=== PATIENT | male | born 1940 | race Caucasian/White ===

== ENCOUNTER 2018-01-27 11:04 | Observation (INO) | payer OTHER ==
[~2018-01-27] VITALS: Ht 177.8 cm; Wt 116.1 kg
[~2018-01-27 11:04] MED LIST: ASPIRIN81 M4 PO; COLCRYS0.6 M1 PO; DAILY MULTIPLE1 EACH PO; DILTIAZEM 24HR240 M1 PO; FINASTERIDE5 M1 PO; FISH OIL 1,0001 EACH PO; FLAXSEED OIL1000 M2 PO; FLOMAX0.4 M1 PO; GABAPENTIN300 M2 PO; GLIPIZIDE10 M2 PO; JANUMET 1000 MG1 TAB PO; JANUMET 50-1,01 EACH PO; LABETALOL HCL300 M1 PO; LEVOTHYROXINE112 MCG PO; LISINOPRIL40 M1 PO; LORTAB 5/3251 TAB PO; OXYBUTYNIN CHLOR5 M2 PO; PRAVASTATIN SOD20 M2 PO; VICODIN5-300 PO; XARELTO20 MG PO
[2018-01-27 11:37] LABS: ABSOLUTE BASOPHIL COUNT 0.1 /CUMM (0.0-0.2); ABSOLUTE EOSINOPHIL COUNT 0.3 /CUMM (0.0-0.7); ABSOLUTE GRANULOCYTE CT 4.1 /CUMM (1.4-6.5); ABSOLUTE LYMPH COUNT 1.4 /CUMM (1.2-3.4); ABSOLUTE MONOCYTE COUNT 0.6 /CUMM (0.10-0.60); BASOPHIL % 0.9 % (0.0-2.0); EOSINOPHIL % 4.8 % (0-5); GRANULOCYTE % 63.2 % (42.2-75.2); HEMATOCRIT 40.7 % (42-52); MEAN CORPUSCULAR HGB 31.2 PG (27.0-31.0); MEAN CORPUSCULAR HGB CONC 34.7 G/DL (33.0-37.0); MEAN CORPUSCULAR VOLUME 89.8 FL (80.0-94.0); MEAN PLATELET VOLUME 8.3 FL (7.4-10.4); PLATELET COUNT 215 /CUMM (130-400); RBC DISTRIBUTION WIDTH 13.5 % (11.5-14.5); RED BLOOD CELL CT 4.53 /CUMM (4.70-6.10); WHITE BLOOD CELL COUNT 6.5 /CUMM (4.8-10.8)
--- NOTE | 2018-01-27 11:56 | RADIOLOGY REPORT ---
EXAMINATION: XR CHEST CLINICAL INFORMATION: Chest pain. Rule out cardiopulmonary pathology. COMPARISON: Chest x-ray dated 03/02/2017 and 01/31/2016. TECHNIQUE: 2 views of the chest were obtained on 3 images. FINDINGS: The cardiomediastinal silhouette is enlarged. Focal eventration of the anterior right hemidiaphragm is again seen with associated crowding of bronchovascular lung markings in the right lung base and mild subsegmental atelectasis. Lungs are otherwise clear. No focal consolidation, effusion or pneumothorax is seen. There is a mild S-shaped thoracolumbar scoliosis and multilevel moderate vertebral spurring, most prominent throughout the mid and lower thoracic spine and the upper lumbar spine. IMPRESSION: 1. Chronic eventration of right hemidiaphragm with associated right basilar minimal subsegmental atelectasis. 2. No new superimposed acute pulmonary process seen.
--- NOTE | 2018-01-27 12:44 | ED CARDIAC/CP/PALPITATIONS ---
History of Present Illness General Chief Complaint: Chest Pain Stated Complaint: CHEST PAIN THIS AM Source: patient Exam Limitations: no limitations Vital Signs & Intake/Output Vital Signs & Intake/Output Vital Signs Date Time Temp Pulse Resp B/P B/P Pulse O2 O2 Flow FiO2 Mean Ox Delivery Rate 01/29 0739 62 168/90 01/29 0738 62 168/90 01/29 0737 62 168/90 01/29 0736 62 168/90 01/29 0628 97.7 54 18 140/84 93 Room Air 01/28 2240 97.7 78 18 172/98 94 Room Air 01/28 2047 76 172/98 01/28 1815 73 160/98 01/28 1647 85 170/100 01/28 1452 68 170/94 ED Intake and Output 01/29 0000 01/28 1200 Intake Total 700 660 Output Total Balance 700 660 Intake, Oral 700 660 Number 1 Bowel Movements Patient 256 lb Weight Weight Bed scale Measurement Method Allergies Coded Allergies: NO KNOWN ALLERGIES (07/20/12) Triage Note: PT TO ED C/O HEART RACING THIS AM ON AND OFF. PT HAD CHEST TIGHTNESS DURING THE HEART RACING EPISODES. C/O FEELING WEAK, BUT DENIES PAIN, C/P. Triage Nurses Notes Reviewed? yes Onset: Gradual Duration: minute(s): Timing: single episode today Quality/Severity: moderate Location: substernal Radiation: no radiation Activities at Onset: rest HPI: 77-year-old male with history of A. fib on Cardizem and aspirin, coronary artery disease, diabetes, hypertension presents to emergency department complaining of racing heart sensation beginning around 7:30 AM this morning. Patient stated he noticed this sensation however then fell back asleep. Patient reports chest pain beginning around 8 AM and lasting for approximately 30 minutes, located substernally, described as tightness and aching, onset while at rest. PAtient had associated dyspnea at this time. Patient states that the palpitations continued intermittently this morning. Visiting nurse checked his pulse, pulse decreased from 48-42 bpm and patient began feeling weak. Visiting nurse recommended he report here to the emergency department. (Pili GUADALUPE,Lakesha Chung) Reconcile Medications Amlodipine Besylate (Norvasc) 10 MG TABLET 10 MG PO DAILY HEART . Aspirin (Aspirin*) 81 MG TAB.CHEW 81 MG PO DAILY HEART Colchicine (Colcrys) 0.6 MG TABLET 1 TAB PO BID GOUT (Reported) Finasteride 5 MG TABLET 1 TAB PO DAILY PROSTATE (Reported) Gabapentin 300 MG CAPSULE 1 CAP PO TID NEUROPATHY (Reported) Labetalol HCl 300 MG TABLET 1 TAB PO BID HEART (Reported) Levothyroxine Sodium 112 MCG TABLET 1 TAB PO DAILY AC THYROID (Reported) Lisinopril 40 MG TABLET 1 TAB PO DAILY BP (Reported) Oxybutynin Chloride 5 MG TABLET 2 TAB PO BID BLADDER (Reported) Sitagliptin Phos/Metformin HCl (Janumet 50-1,000 MG Tablet) 50 MG-1,000 MG TABLET 1 TAB PO BID DIABETES (Reported) Tamsulosin HCl (Flomax) 0.4 MG CAP.ER.24H 1 CAP PO DAILY PROSTATE (Reported) (Ti Lin DO) Past History Travel History Traveled to [place] past 21 day No Medical History Any Pertinent Medical History? 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 No (Lakesha Swain) Review of Systems Review of Systems Constitutional: Reports: see HPI. EENTM: Reports: no symptoms. Respiratory: Reports: see HPI. Cardiovascular: Reports: see HPI. GI: Reports: no symptoms. Genitourinary: Reports: no symptoms. Musculoskeletal: Reports: no symptoms. Skin: Reports: no symptoms. Neurological/Psychological: Reports: no symptoms. Hematologic/Endocrine: Reports: no symptoms. Immunologic/Allergic: Reports: no symptoms. All Other Systems: Reviewed and Negative (Lakesha Swain) Physical Exam Physical Exam General Appearance: well developed/nourished, no apparent distress, alert, awake Head: atraumatic, normal appearance Eyes: Bilateral: normal appearance. Ears, Nose, Throat: hearing grossly normal Neck: normal inspection, supple, full range of motion Respiratory: normal breath sounds, no respiratory distress, lungs clear Cardiovascular: bradycardia Peripheral Pulses: 2+ radial (R), 2+ radial (L) Gastrointestinal: normal bowel sounds, soft, non-tender, no organomegaly Back: normal inspection, normal range of motion Extremities: normal inspection, normal range of motion Neurologic/Psych: awake, alert, oriented x 3 Skin: intact, normal color, warm/dry Core Measures ACS in differential dx? Yes CVA/TIA Diagnosis No Sepsis Present: No Sepsis Focused Exam Completed? No (Pili GUADALUPE,Lakesha Chung) Progress Differential Diagnosis: AMI, atrial fibrillation, CHF/pulm edema, myocarditis, pericarditis, pulmonary embolism, unstable angina Plan of Care: Orders Procedure Date/time Status Discharge Patient 01/29 UNK Active Weight 01/28 2248 Active Current Medications Sig/Ruma Start time Last Medication Dose Stop Time Status Admin Patient Medication 1 ED ONE 01/29 0000 NR Teaching 01/29 2359 (Medication Education ONE) Laboratory Tests 01/29/18 0625: Anion Gap 13, Estimated GFR > 60, BUN/Creatinine Ratio 17.1, Magnesium 1.9, TSH &T3 &Free T4 Intrp 2.620, CBC w Diff NO MAN DIFF REQ, RBC 4.88, MCV 91.5, MCH 30.7, MCHC 33.5, RDW 13.6, MPV 9.1, Gran % 64.4, Lymphocytes % 20.1 L, Monocytes % 9.3, Eosinophils % 5.3 H, Basophils % 0.9, Absolute Granulocytes 4.2, Absolute Lymphocytes 1.3, Absolute Monocytes 0.6, Absolute Eosinophils 0.3, Absolute Basophils 0.1 Patient's labs are stable, negative troponin enzyme. EKG shows sinus bradycardia. Discussed findings with saw operator Dr. Brambila - in setting of chest pain earlier today with symptomatic bradycardia this patient would benefit from telemetry observation for repeat EKGs, troponins, cardiology consult, medication adjustment. Dr. Lin spoke with Dr. Del Cid regarding this patient's telemetry observation. Diagnostic Imaging: Viewed by Me: Radiology Read. Discussed w/RAD: Radiology Read. CXR Impression: PATIENT: JOANN NICHOLAS JR PRESENT AGE : 77 PATIENT ACCOUNT NO: [id number] : 42 LOCATION: [facility] ORDERING PHYSICIAN: Lakesha GUADALUPE SERVICE DATE: 01/27/18-1110 EXAM TYPE: RAD - XRY-CHEST XRAY, TWO VIEWS EXAMINATION: XR CHEST CLINICAL INFORMATION: Chest pain. Rule out cardiopulmonary pathology. COMPARISON: Chest x-ray dated 2016 and 01/31/2016. TECHNIQUE: 2 views of the chest were obtained on 3 images. FINDINGS: The cardiomediastinal silhouette is enlarged. Focal eventration of the anterior right hemidiaphragm is again seen with associated crowding of bronchovascular lung markings in the right lung base and mild subsegmental atelectasis. Lungs are otherwise clear. No focal consolidation, effusion or pneumothorax is seen. There is a mild S-shaped thoracolumbar scoliosis and multilevel moderate vertebral spurring, most prominent throughout the mid and lower thoracic spine and the upper lumbar spine. IMPRESSION: 1. Chronic eventration of right hemidiaphragm with associated right basilar minimal subsegmental atelectasis. 2. No new superimposed acute pulmonary process seen. DICTATED BY: Rere Sanabria MD DATE/TIME DICTATED:01/27/181148 MAIL ORDER CLERK:[place] DATE/TIME TRANSCRIBED:01/27/181148 CONFIDENTIAL, DO NOT COPY WITHOUT APPROPRIATE AUTHORIZATION. <Electronically signed in Other Vendor System> SIGNED BY: Rere Sanabria MD 01/27/18 1156 Initial ED EKG: SINUS BRADYCARDIA @49BPM, NONSPECIFIC ST CHANGES (Lakesha Swain) Departure Departure Disposition: STILL A PATIENT Condition: Stable Clinical Impression Primary Impression: Chest pain Qualifiers: Chest pain type: unspecified Qualified Code: R07.9 - Chest pain, unspecified Secondary Impressions: Symptomatic bradycardia Referrals: Zita Morse APRN (PCP/Family) Departure Forms: Customer Survey General Discharge Information Observation Note Spoke With: Hayden Del Cid MD Physician Advisor Notified: ABIMBOLA STEPHENS DO Place Patient In: Non-ED OBS Care Area Rationale for Observation: My rational for observation is as follows [chest pain rule out requiring telemetry monitoring, trend EKGs and troponins, cardiology consult, symptomatically bradycardia requiring medication adjustment, premature discharge medically unsafe]. (Lakesha Swain) Departure Prescriptions: Current Visit Scripts Aspirin (Aspirin*) 81 MG PO DAILY #30 TAB Amlodipine Besylate (Norvasc) 10 MG PO DAILY #30 TAB . PA/INSULATING MACHINE OPERATOR Co-Sign Statement Statement: ED Attending supervision documentation- [X] I saw and evaluated the patient. I have also reviewed all the pertinent lab results and diagnostic results. I agree with the findings and the plan of care as documented in the PA's/INSULATING MACHINE OPERATOR's documentation. [] I have reviewed the ED Record and agree with the PA's/INSULATING MACHINE OPERATOR's documentation. [] Additions or exceptions (if any) to the PAs/INSULATING MACHINE OPERATOR's note and plan are summarized below: [] (Ti Lin DO) Critical Care Note Critical Care Note Critical Care Time: non-applicable (Pili GUADALUPE,Lakesha Chung)
--- NOTE | 2018-01-27 14:02 | History & Physical ---
Jason Huntley 01/27/18 1401: General Information and HPI MD Statement: I have seen and personally examined JOANN NICHOLAS JR and documented this H&P. The patient is a 77 year old M who presented with a patient stated chief complaint of [Chest pain]. Source of Information: patient Exam Limitations: no limitations History of Present Illness: Mr. Nicholas is a 77 year old male with a past medical history of atrial fibrillation, for which he takes aspirin, CAD, non-insulin dependent diabetes, hypothyroid, JAYLENE and HTN who presented to the ED after experiencing chest pain this morning that came about after feeling palpitations that continued longer than other episodes of palpitations he had experienced, for maybe 20-30 minutes. At this point the patient took his pulse and noticed it to be slowed. Soon after , the patient noticed a pain in his chest that was described as a tightness, in the middle of his chest that radiated up to his neck and felt like something was in his throat. He also complained of pain in his lower left flank. These pains were rated 7/10 and associated with weakness, shortness of breath and loss of appetite. The patient called a nurse provided by his [employer] over the telephone who recommended that he go to the ED. The chest pain itself resolved just prior to the patient leaving for the ED, but once at the hospital it was noted that the patient's heartrate was indeed in sinus bradycardia, and he was hypertensive. At presentation the patient denied shortness of breath, dizziness, nausea, vomiting, abdominal pain or headache. The patient also has a history of gout and BPH, and has a positive surgical history for hip replacement, and no known drug allergies. He lives at home with his , and denied current alcohol or tobacco use, and no illicit drugs. Allergies/Medications Allergies: Coded Allergies: NO KNOWN ALLERGIES (07/20/12) Home Med list Colchicine (Colcrys) 0.6 MG TABLET 1 TAB PO BID GOUT (Reported) Diltiazem HCl (Diltiazem 24HR Cd) 240 MG CAP.ER.24H 1 CAP PO DAILY HEART ( Reported) Finasteride 5 MG TABLET 1 TAB PO DAILY PROSTATE (Reported) Gabapentin 300 MG CAPSULE 1 CAP PO TID NEUROPATHY (Reported) Labetalol HCl 300 MG TABLET 1 TAB PO BID HEART (Reported) Levothyroxine Sodium 112 MCG TABLET 1 TAB PO DAILY AC THYROID (Reported) Lisinopril 40 MG TABLET 1 TAB PO DAILY BP (Reported) Oxybutynin Chloride 5 MG TABLET 2 TAB PO BID BLADDER (Reported) Sitagliptin Phos/Metformin HCl (Janumet 50-1,000 MG Tablet) 50 MG-1,000 MG TABLET 1 TAB PO BID DIABETES (Reported) Tamsulosin HCl (Flomax) 0.4 MG CAP.ER.24H 1 CAP PO DAILY PROSTATE (Reported) Compliance With Home Meds: FAIR Past History Travel History Traveled to [place] past 21 day No Medical History Neurological: NONE EENT: NONE Cardiovascular: AFIB, hypertension, hyperlipidemia Respiratory: NONE Gastrointestinal: NONE Hepatic: NONE Renal: benign prost hyperplasia Musculoskeletal: gout, ARTHRITIS Psychiatric: NONE Endocrine: diabetes, hypothyroidism Blood Disorders: NONE Cancer(s): NONE 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 spouse Services at Home: None ETOH Use: denies use Illicit Drug Use: denies illicit drug use Functional Ability Ambulation: cane Review of Systems Review of Systems Constitutional: Denies: chills, fever, weakness. Cardiovascular: Denies: chest pain, palpitations, peripheral edema. Respiratory: Denies: cough, short of breath. GI: Denies: abdominal pain, nausea, vomiting. Exam & Diagnostic Data Last 24 Hrs of Vital Signs/I&O Vital Signs Date Time Temp Pulse Resp B/P B/P Pulse O2 O2 Flow FiO2 Mean Ox Delivery Rate 01/27 2100 97.6 62 20 162/98 92 01/27 1933 53 18 178/83 94 Room Air 01/27 1800 50 18 168/80 96 Room Air 01/27 1756 98.0 54 18 160/72 01/27 1749 54 18 160/72 99 Room Air 01/27 1550 187/87 01/27 1429 49 18 190/86 96 Room Air 01/27 1256 Room Air 01/27 1256 47 18 178/86 95 Room Air 01/27 1122 98.0 50 20 165/82 94 Room Air Intake & Output 01/27 1600 01/27 0800 01/27 0000 Intake Total Output Total Balance Patient 117.934 kg Weight Weight Reported by Patient Measurement Method Physical Exam General Appearance Alert, Oriented X3, Cooperative, No Acute Distress HEENT Atraumatic, PERRLA, EOMI Neck Supple, No JVD, No thryomegaly Cardiovascular Regular Rate, Normal S1, Normal S2, No Murmurs Lungs Clear to Auscultation Abdomen Normal Bowel Sounds, Soft, No Tenderness Neurological Normal Gait, Normal Speech Extremities No Clubbing, No Cyanosis, +1 edema bilaterally lower extremities Assessment/Plan Assessment: 77 year old male with pmh of a-fib, NIDDM, hypothyroidism, CAD, JAYLENE and HTN, presented to the ED after experiencing chest pain with tightness in his chest radiating up to his neck at home. In the ED, the pain was resolved but the patient was noted to be in sinus bradycardia and hypertensive. 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 Problems: 1. Chest pain without elevated troponins 2. Hypertension Plan: * Cardiology consulted * Echocardiogram * Serial troponins and EKG's * Continue home BP regimen Full code Labs: CBC & BEP, serial troponins Heparin & ALPS DVT prophylaxis Diet: Heart healthy diet As Ranked By This Provider Problem List: 1. Hypertension 2. Palpitations 3. Chest pain Qualifiers Chest pain type: unspecified Qualified Code: R07.9 - Chest pain, unspecified Core Measures/Misc (03/22) Acute Coronary Syndrome ACS Diagnosis: No Congestive Heart Failure Congestive Heart Failure Diagnosis No Cerebrovascular Accident CVA/TIA Diagnosis: No VTE (View Protocol) VTE Risk Factors Age>40 No Mechanical VTE Prophylaxis d/t N/A MechProphylax Ordered No VTE Pharm Prophylaxis d/t NA PharmProphylax ordered Sepsis (View protocol) Sepsis Present: No If YES complete Sepsis Event Note If YES complete Sepsis Event Note Meghann Molina MD 01/27/18 1441: Core Measures/Misc (03/22) Sepsis (View protocol) If YES complete Sepsis Event Note If YES complete Sepsis Event Note Resident Review Statement Other Findings: 75-year-old gentleman with past medical history of atrial fibrillation, obstructive sleep apnea on BiPAP hypertension, hyperlipidemia, gout, BPH, diabetes, hypothyroidism, came to [place] ER with complaints of chest pain and palpitation. Last admission in [facility] for hypertensive urgency in 2017. Patient was in usual state of health until today morning following which he developed chest pain and palpitations lasting for a few minutes. According to him the chest pain was 7 x 10 in nature substernal with no radiation and not relieved by position/medication. Patient used to have these kind of chest pain on and off many months ago. Patient denied diaphoresis, nausea, vomiting, myalgia, tick bite, abdominal pain, constipation, diarrhea. Patient's granddaughter checked his pulse during the time of chest pain and found to be in 50s which he claims it was low for the past 1 year. By the time he came to hospital he said that his chest pain and palpitations got relieved. Last he saw his sheet tailer was more than a year ago. admission vitals Temperature 98, pulse rate 50, respiratory rate 20, blood pressure 165/82, saturating 94 at room Admission labs WBC 6.5, hemoglobin 14.1, platelet count 215, sodium 144, potassium 4, glucose 116, troponin 0 0.01, proBNP 203 Chest x-ray 1. Chronic eventration of right hemidiaphragm with associated right basilar minimal subsegmental atelectasis. 2. No new superimposed acute pulmonary process seen. Echocardiogram-2016 EF 60-65% On examination Conscious, oriented not in acute distress. Saturating 98 at room air. Cardiovascular [id number] no murmur Respiratory [id number] no murmur Abdomen-obese bowel sounds heard no organomegaly PREFINISH OPERATOR-3 through 12 cranial nerves intact Bilateral extremities both pulses felt mild pedal edema Assessment and plan 1. Chest pain rule out ACS * Serial troponins and EKG first set of tubes and EKG negative. * Cardiology consult * Echocardiogram * Bradycardia-can be secondary to labetalol. Need to adjust the dosage after discussing with cardiology. Patient is also on diltiazem and lisinopril. * Given his history of atrial fibrillation and presentation of bradycardia this could be tachybradycardia syndrome though unlikely given that he is on high dose of beta-kae. Needs to be discussed with cardiology * Heart healthy diet * Full code * DVT prophylaxis-Carlos Valencia MD 01/27/18 1628: Core Measures/Misc (03/22) Sepsis (View protocol) If YES complete Sepsis Event Note If YES complete Sepsis Event Note Attending Review Statement Attending Statement Attending MD Statement: examined this patient, discuss w/resident/PA/TIN WHIZ MACHINE OPERATOR, agreed w/resident/PA/TIN WHIZ MACHINE OPERATOR, reviewed EMR data (avail), discussed with nursing, amended to note Attending Assessment/Plan: 77 year-old male with a past medical history of A. fib, hypertension, hyperlipidemia, benign prostatic hyperplasia, diabetes, JAYLENE on BiPAP, hypothyroidism. Presents to the emergency room with complaints of chest pain. Currently asymptomatic. Denies shortness of breath at rest. Currently denying palpitations. On examination he is not in any acute distress. Heart sounds are regular. Lungs are clear bilaterally. Abdomen is soft and nontender. He has 1 + pedal edema bilaterally. He has hyperpigmentation changes bilateral lower extremities. EKG shows Bradycardia. No ischemic changes noted. 2 sets of cardiac enzymes are negative so far. Recommendations: -Placed on observation status on the telemetry unit. -2 sets of troponins are negative. Check echocardiogram to evaluate for wall motion abnormality. -Bradycardia is likely medication induced. He is on Cardizem and labetalol. Labetalol dose was recently increased likely due to his uncontrolled hypertension. He will need further optimization of his cardiac regimen. We will follow-up with his cardiology service. He will likely benefit from some diuresis given his peripheral edema. -Check TSH.
[2018-01-27 21:00] VITALS: BP 162/98
--- NOTE | 2018-01-27 21:11 | Cons- Cardiology ---
General Information and HPI Consulting Request Date of Consult: 01/27/18 Requested By: Carlos Moss MD Reason for Consult: Chest pain, atrial fibrillation History of Present Illness: The patient is a 77-year-old male with history of paroxysmal atrial fibrillation , obstructive sleep apnea, hypertension, diabetes mellitus, hypothyroidism, and hyperlipidemia. He is followed in the office by Dr. Aguirre. He presented to the hospital with complaint of chest discomfort and palpitations. He felt like his heart was racing during the episode, however when he checked his pulse it was in the 40s. The episode felt similar to his typical episodes of atrial fibrillation, however his episodes typically last for only 2 minutes or less, and the episode today lasted much longer. The symptoms resolved prior to his evaluation in the emergency department. He describes the discomfort as a mild to moderate tightness in the center of his chest with no radiation. He notes that he previously was on anticoagulation with Eliquis, however it was discontinued because of epistaxis. No syncope. No orthopnea. No diaphoresis. No nausea or vomiting. No lightheadedness or dizziness. Allergies/Medications Allergies: Coded Allergies: NO KNOWN ALLERGIES (07/20/12) Home Med List: Colchicine (Colcrys) 0.6 MG TABLET 1 TAB PO BID GOUT (Reported) Diltiazem HCl (Diltiazem 24HR Cd) 240 MG CAP.ER.24H 1 CAP PO DAILY HEART ( Reported) Finasteride 5 MG TABLET 1 TAB PO DAILY PROSTATE (Reported) Gabapentin 300 MG CAPSULE 1 CAP PO TID NEUROPATHY (Reported) Labetalol HCl 300 MG TABLET 1 TAB PO BID HEART (Reported) Levothyroxine Sodium 112 MCG TABLET 1 TAB PO DAILY AC THYROID (Reported) Lisinopril 40 MG TABLET 1 TAB PO DAILY BP (Reported) Oxybutynin Chloride 5 MG TABLET 2 TAB PO BID BLADDER (Reported) Sitagliptin Phos/Metformin HCl (Janumet 50-1,000 MG Tablet) 50 MG-1,000 MG TABLET 1 TAB PO BID DIABETES (Reported) Tamsulosin HCl (Flomax) 0.4 MG CAP.ER.24H 1 CAP PO DAILY PROSTATE (Reported) Current Medications: Current Medications Sig/Ruma Start time Last Medication Dose Route Stop Time Status Admin Acetaminophen 650 MG Q4P PRN 01/27 1645 AC PO Acetaminophen 1,000 MG Q6P PRN 01/27 1645 AC N/A 1 UNIT IV Finasteride 5 MG DAILY 01/28 09 AC PO Gabapentin 300 MG TID 01/27 2100 AC PO Heparin Sodium 5,000 UNIT Q8 01/27 2200 AC (Porcine) SC Insulin Aspart 0 TIDAC 01/27 1700 AC SC Levothyroxine Sodium 0.112 MG DAILY AC 01/28 07 AC PO Lisinopril 0 .STK-MED ONE 01/27 1741 DC PO Lisinopril 40 MG DAILY 01/27 1633 AC 01/27 PO 1756 Morphine Sulfate 2 MG Q6P PRN 01/27 1645 AC IV Oxybutynin Chloride 10 MG BID 01/27 2100 AC PO Tamsulosin HCl 0.4 MG DAILY 01/28 09 AC PO Review of Systems Review of Systems: No fever. No chills. No rash. No tremor. No hemoptysis. Hematemesis. All other systems were reviewed, and were noted to be negative. Past History Travel History Traveled to [place] past 21 day No Medical History Neurological: NONE EENT: NONE Cardiovascular: AFIB, hypertension, hyperlipidemia Respiratory: NONE Gastrointestinal: NONE Hepatic: NONE Renal: benign prost hyperplasia Musculoskeletal: gout, ARTHRITIS Psychiatric: NONE Endocrine: diabetes, hypothyroidism Blood Disorders: NONE Cancer(s): NONE [employer]WORK[employer]PER[employer]/Reproductive: NONE Surgical History Surgical History: non-contributory, hip replacement Family History Relations & Conditions If Any: MOTHER Cardiac pacemaker Psychosocial History Who Do You Live With? spouse Services at Home: None ETOH Use: denies use Illicit Drug Use: denies illicit drug use Functional Ability Ambulation: cane Exam & Diagnostic Data Vital Signs and I&O Vital Signs Date Time Temp Pulse Resp B/P B/P Pulse O2 O2 Flow FiO2 Mean Ox Delivery Rate 01/27 2100 97.6 62 20 162/98 92 01/27 1933 53 18 178/83 94 Room Air 01/27 1800 50 18 168/80 96 Room Air 01/27 1756 98.0 54 18 160/72 01/27 1749 54 18 160/72 99 Room Air 01/27 1550 187/87 01/27 1429 49 18 190/86 96 Room Air 01/27 1256 Room Air 01/27 1256 47 18 178/86 95 Room Air 01/27 1122 98.0 50 20 165/82 94 Room Air Intake & Output 01/27 1600 01/27 0800 01/27 0000 01/26 1600 01/26 0800 01/26 0000 Intake Total Output Total Balance Patient 260 lb Weight Weight Reported by Patient Measurement Method Physical Exam: Gen: The patient is in no acute distress HEENT: Normal nose, ears, and oropharynx. Pupils equal bilaterally. Conjunctiva normal. Neck: Supple with no JVD, no masses, and no thyromegaly Lungs: Clear to auscultation with normal respiratory effort Heart: RRR, S1, S2, 2 out of 6 systolic murmur. No peripheral edema, 2+ pulses in the lower extremities bilaterally Abdomen: Soft, nontender, no masses. No hepatomegaly. No splenomegaly Extremities: No clubbing or cyanosis. Normal muscle strength in the upper and lower extremities Skin: Normal skin turgor with no skin ulcers or lesions noted. Neuro: Cranial nerves intact. Sensation intact Psych: Alert and oriented x 3 with appropriate affect Labs/Pradip Results: Laboratory Tests 01/27 01/27 1425 1126 Chemistry Sodium (137 - 145 mmol/L) 144 Potassium (3.5 - 5.1 mmol/L) 4.0 Chloride (98 - 107 mmol/L) 106 Carbon Dioxide (22 - 30 mmol/L) 25 Anion Gap (5 - 16) 13 BUN (9 - 20 mg/dL) 12 Creatinine (0.7 - 1.2 mg/dL) 0.7 Estimated GFR (>60 ml/min) > 60 BUN/Creatinine Ratio (7 - 25 %) 17.1 Glucose (65 - 99 mg/dL) 116 H Calcium (8.4 - 10.2 mg/dL) 9.5 Magnesium (1.6 - 2.3 mg/dL) 1.9 Total Bilirubin (0.2 - 1.3 mg/dL) 0.7 AST (17 - 59 U/L) 38 ALT (21 - 72 U/L) 55 Alkaline Phosphatase (< 127 U/L) 60 Troponin I (<0.11 ng/ml) < 0.01 < 0.01 Vyx-N-Addlsmtldih Pept (<125 pg/mL) 203 H Total Protein (6.3 - 8.2 g/dL) 6.3 Albumin (3.5 - 5.0 g/dL) 3.9 Globulin (1.9 - 4.2 gm/dL) 2.4 Albumin/Globulin Ratio (1.1 - 2.2 %) 1.6 Hematology CBC w Diff NO MAN DIFF REQ WBC (4.8 - 10.8 /CUMM) 6.5 RBC (4.70 - 6.10 /CUMM) 4.53 L Hgb (14.0 - 18.0 G/DL) 14.1 Hct (42 - 52 %) 40.7 L MCV (80.0 - 94.0 FL) 89.8 MCH (27.0 - 31.0 PG) 31.2 H MCHC (33.0 - 37.0 G/DL) 34.7 RDW (11.5 - 14.5 %) 13.5 Plt Count (130 - 400 /CUMM) 215 MPV (7.4 - 10.4 FL) 8.3 Gran % (42.2 - 75.2 %) 63.2 Lymphocytes % (20.5 - 51.1 %) 21.5 Monocytes % (1.7 - 9.3 %) 9.6 H Eosinophils % (0 - 5 %) 4.8 Basophils % (0.0 - 2.0 %) 0.9 Absolute Granulocytes (1.4 - 6.5 /CUMM) 4.1 Absolute Lymphocytes (1.2 - 3.4 /CUMM) 1.4 Absolute Monocytes (0.10 - 0.60 /CUMM) 0.6 Absolute Eosinophils (0.0 - 0.7 /CUMM) 0.3 Absolute Basophils (0.0 - 0.2 /CUMM) 0.1 Diagnostic Data EKG Results EKG tracing is independently reviewed, and reveals sinus bradycardia at 51, inferior infarct age undetermined CXR Results 1. Chronic eventration of right hemidiaphragm with associated right basilar minimal subsegmental atelectasis. 2. No new superimposed acute pulmonary process seen. Other Results Echocardiogram 01/30/17: 1. This was a technically difficult and limited examination due to the patient's body habitus. 2. MIld aortic sclerosis is present with no valvular stenosis or insufficiency. Mild enlargement of the ascending aorta is present. 3. Mitral leaflet thickening is present with minimal mitral insufficiency and mild to moderate left atrial enlargement. 4. There is no significant pericardial fluid present. 5. The left ventricular chamber size and systolic function are normal. Moderate concentric hypertrophy is preseet. There are not resting wall motion abnoramlities. Mild diastolic dysfunction is present. 6. The right heart structures are not optimally assessed. Minimal tricuspid insufficiency is present. Assessment/Plan Assessment/Plan The patient is a 77-year-old male with history of paroxysmal atrial fibrillation , obstructive sleep apnea, hypertension, hypothyroidism, and hyperlipidemia presenting with chest discomfort and palpitations. The symptoms felt similar to his usual symptoms of atrial fibrillation. By the time of his arrival in the emergency department the symptoms had resolved, and he was noted to be in sinus rhythm and sinus bradycardia. Recommendations: * Monitor on telemetry * Check serial troponin * Would continue labetalol 300 mg p.o. twice daily * Continue lisinopril * Would hold diltiazem for now given sinus bradycardia. * Monitor for further atrial fibrillation or bradycardia Consult Acknowledgment - Thank you for your consult request.
--- NOTE | 2018-01-28 06:18 | PN-Observation ---
Observation Note Observation Note _ I have personally examined JOANN NICHOLAS JR. him disposition is uncertain at this time. Before a determination can be made, he requires continued observation for the following reasons [Uncontrolled hypertension]. Assessment/Plan Medical Assessment: 77-year-old male history of atrial fibrillation, hypertension, CAD, NIDDM presented to ED with chest pain radiating to the neck after experiencing longer than usual palpitations in the morning. The pain spontaneously resolved before the patient presented to the emergency department. And overnight on the monitor , he was in sinus bradycardia with first-degree heart block with lowest rates from 41 42 bpm. Serial troponins and EKGs were negative. Patient has remained markedly hypertensive throughout the hospitalization, and his blood pressure must be titrated on the novel medication amlodipine. Problem List: 1. Atrial fibrillation 2. Bradycardia 3. Hypertensive urgency 4. Hypothyroidism 5. Hyperlipidemia 6. Diabetes mellitus type 2 Plan: * Amlodipine 5 mg, second dose given * Amlodipine 10 mg p.o. starting tomorrow * Continue labetalol * Continue home dose of colchicine for gout * Continue baby aspirin * Check magnesium in the morning, replete as necessary stable 2.0 * Insulin sliding scale coverage * Continue home levothyroxine DVT/Prophylaxis: mechanical, pharmacological Subjective Follow-up For: Atrial fibrillation Bradycardia Hypertensive urgency Tele-Events Since Last Visit: Sinus bradycardia overnight, first-degree heart block. Rate as low as 41 42 bpm. Subjective: Patient seen resting comfortably in the bed. Overnight no acute events, patient reports that he is feeling much improved and has no complaints. Patient denies chest pain, shortness of breath, palpitations, or dizziness. Review of Systems Constitutional: Denies: chills, fever, weakness. Cardiovascular: Denies: chest pain, orthopena. Respiratory: Denies: cough, orthopnea, sputum production. Gastrointestinal: Denies: abdominal pain, diarrhea, nausea, vomiting. Objective Last 24 Hrs of Vital Signs/I&O Vital Signs Date Time Temp Pulse Resp B/P B/P Pulse O2 O2 Flow FiO2 Mean Ox Delivery Rate 01/28 1452 68 170/94 01/28 1332 97.9 62 20 160/102 93 Room Air 01/28 1259 64 172/100 01/28 0747 59 162/100 01/28 0747 59 162/100 01/28 0637 62 182/98 01/28 0630 98.2 60 20 182/112 94 01/27 2100 97.6 62 20 162/98 92 01/27 1933 53 18 178/83 94 Room Air 01/27 1800 50 18 168/80 96 Room Air 01/27 1756 98.0 54 18 160/72 01/27 1749 54 18 160/72 99 Room Air Intake & Output 01/28 1600 01/28 0800 01/28 0000 Intake Total 700 660 150 Output Total Balance 700 660 150 Intake, Oral 700 660 150 Number 1 Bowel Movements Patient 119.04 kg Weight Physical Exam General Appearance: Alert, Oriented X3, Cooperative, No Acute Distress Cardiovascular: Normal S1, Normal S2, No Murmurs, Bradycardic rate Lungs: Clear to Auscultation Abdomen: Normal Bowel Sounds, Soft, No Tenderness Neurological: Normal Gait, Normal Speech, Strength at 5/5 X4 Ext Extremities: No Clubbing, No Cyanosis, +1 pitting edema Current Medications: Current Medications Sig/Ruma Start time Last Medication Dose Route Stop Time Status Admin Acetaminophen 650 MG Q4P PRN 01/27 1645 AC PO Acetaminophen 1,000 MG Q6P PRN 01/27 1645 AC N/A 1 UNIT IV Amlodipine Besylate 5 MG ONCE ONE 01/28 1500 DC 01/28 PO 01/28 1501 1452 Amlodipine Besylate 5 MG DAILY 01/28 1145 AC 01/28 PO 1259 Aspirin 81 MG DAILY 01/28 1600 AC 01/28 PO 1612 Colchicine 600 MCG BID 01/28 2100 AC PO Finasteride 5 MG DAILY 01/28 0900 AC 01/28 PO 0748 Gabapentin 300 MG TID 01/27 2100 AC 01/28 PO 1259 Heparin Sodium 5,000 UNIT Q8 01/27 2200 AC 01/28 (Porcine) SC 1259 Insulin Aspart 0 TIDAC 01/27 1700 AC SC Labetalol HCl 300 MG BID 01/28 0900 DC PO Labetalol HCl 300 MG BID 01/28 0900 AC 01/28 PO 0637 Levothyroxine Sodium 0.112 MG DAILY AC 01/28 0700 AC 01/28 PO 0547 Lisinopril 0 .STK-MED ONE 01/27 1741 DC PO Lisinopril 40 MG DAILY 01/27 1633 AC 01/28 PO 0747 Morphine Sulfate 2 MG Q6P PRN 01/27 1645 AC IV Oxybutynin Chloride 10 MG BID 01/27 2100 AC 01/28 PO 0746 Potassium Chloride 60 MEQ ONCE ONE 01/28 1100 DC 01/28 PO 01/28 1101 1103 Tamsulosin HCl 0.4 MG DAILY 01/28 0900 AC 01/28 PO 0747 Last 24 Hrs of Labs/Mics: Laboratory Tests 01/28/18 0645: Anion Gap 11, Estimated GFR > 60, BUN/Creatinine Ratio 18.6, CBC w Diff NO MAN DIFF REQ, RBC 4.60 L, MCV 91.2, MCH 31.0, MCHC 34.0, RDW 13.6, MPV 8.8, Gran % 67.5, Lymphocytes % 18.7 L, Monocytes % 8.6, Eosinophils % 4.6, Basophils % 0.6 , Absolute Granulocytes 4.3, Absolute Lymphocytes 1.2, Absolute Monocytes 0.5, Absolute Eosinophils 0.3, Absolute Basophils 0 01/27/18 2310: Troponin I < 0.01
[2018-01-28 06:30] VITALS: BP 182/112
[2018-01-28 08:15] LABS: ABSOLUTE BASOPHIL COUNT 0 /CUMM (0.0-0.2); ABSOLUTE EOSINOPHIL COUNT 0.3 /CUMM (0.0-0.7); ABSOLUTE GRANULOCYTE CT 4.3 /CUMM (1.4-6.5); ABSOLUTE LYMPH COUNT 1.2 /CUMM (1.2-3.4); ABSOLUTE MONOCYTE COUNT 0.5 /CUMM (0.10-0.60); BASOPHIL % 0.6 % (0.0-2.0); EOSINOPHIL % 4.6 % (0-5); GRANULOCYTE % 67.5 % (42.2-75.2); MEAN CORPUSCULAR VOLUME 91.2 FL (80.0-94.0); MEAN PLATELET VOLUME 8.8 FL (7.4-10.4); PLATELET COUNT 199 /CUMM (130-400); RBC DISTRIBUTION WIDTH 13.6 % (11.5-14.5); WHITE BLOOD CELL COUNT 6.3 /CUMM (4.8-10.8)
--- NOTE | 2018-01-28 11:18 | PN- Cardiology ---
Subjective Subjective: Feeling better. No chest discomfort or palpitations. He remains in sinus rhythm. Bradycardia has improved with discontinuation of diltiazem. No palpitations. No lightheadedness or dizziness. No nausea or vomiting. Objective Vital Signs and I&Os Vital Signs Date Time Temp Pulse Resp B/P B/P Pulse O2 O2 Flow FiO2 Mean Ox Delivery Rate 01/28 0747 59 162/100 01/28 0747 59 162/100 01/28 0637 62 182/98 01/28 0630 98.2 60 20 182/112 94 01/27 2100 97.6 62 20 162/98 92 01/27 1933 53 18 178/83 94 Room Air 01/27 1800 50 18 168/80 96 Room Air 01/27 1756 98.0 54 18 160/72 01/27 1749 54 18 160/72 99 Room Air 01/27 1550 187/87 01/27 1429 49 18 190/86 96 Room Air 01/27 1256 Room Air 01/27 1256 47 18 178/86 95 Room Air 01/27 1122 98.0 50 20 165/82 94 Room Air Intake & Output 01/28 1600 01/28 0800 01/28 0000 01/27 1600 01/27 0800 01/27 0000 Intake Total 660 150 Output Total Balance 660 150 Intake, Oral 660 150 Patient 262 lb 260 lb Weight Weight Reported by Patient Measurement Method Physical Exam: Gen: The patient is in no acute distress HEENT: Normal nose, ears, and oropharynx. Pupils equal bilaterally. Conjunctiva normal. Neck: Supple with no JVD, no masses, and no thyromegaly Lungs: Clear to auscultation with normal respiratory effort Heart: RRR, S1, S2, 2/6 systolic murmur. No peripheral edema, 2+ pulses in the lower extremities bilaterally Abdomen: Soft, nontender, no masses. No hepatomegaly. No splenomegaly Extremities: No clubbing or cyanosis. Normal muscle strength in the upper and lower extremities Skin: Normal skin turgor with no skin ulcers or lesions noted. Neuro: Cranial nerves intact. Sensation intact Psych: Alert and oriented x 3 with appropriate affect Current Medications: Current Medications Sig/Ruma Start time Last Medication Dose Route Stop Time Status Admin Acetaminophen 650 MG Q4P PRN 01/27 1645 AC PO Acetaminophen 1,000 MG Q6P PRN 01/27 1645 AC N/A 1 UNIT IV Finasteride 5 MG DAILY 01/28 0900 AC 01/28 PO 0748 Gabapentin 300 MG TID 01/27 2100 AC 01/28 PO 0747 Heparin Sodium 5,000 UNIT Q8 01/27 2200 AC 01/28 (Porcine) SC 0547 Insulin Aspart 0 TIDAC 01/27 1700 AC SC Labetalol HCl 300 MG BID 01/28 09 DC PO Labetalol HCl 300 MG BID 01/28 09 AC 01/28 PO 0637 Levothyroxine Sodium 0.112 MG DAILY AC 01/28 0700 AC 01/28 PO 0547 Lisinopril 0 .STK-MED ONE 01/27 1741 DC PO Lisinopril 40 MG DAILY 01/27 1633 AC 01/28 PO 0747 Morphine Sulfate 2 MG Q6P PRN 01/27 1645 AC IV Oxybutynin Chloride 10 MG BID 01/27 2100 AC 01/28 PO 0746 Potassium Chloride 60 MEQ ONCE ONE 01/28 1100 DC 01/28 PO 01/28 1101 1103 Tamsulosin HCl 0.4 MG DAILY 01/28 09 AC 01/28 PO 0747 Results Last 48 Hrs of Labs/Mics: Laboratory Tests 01/28/18 0645: Anion Gap 11, Estimated GFR > 60, BUN/Creatinine Ratio 18.6, CBC w Diff NO MAN DIFF REQ, RBC 4.60 L, MCV 91.2, MCH 31.0, MCHC 34.0, RDW 13.6, MPV 8.8, Gran % 67.5, Lymphocytes % 18.7 L, Monocytes % 8.6, Eosinophils % 4.6, Basophils % 0.6 , Absolute Granulocytes 4.3, Absolute Lymphocytes 1.2, Absolute Monocytes 0.5, Absolute Eosinophils 0.3, Absolute Basophils 0 01/27/18 2310: Troponin I < 0.01 01/27/18 1425: Troponin I < 0.01 01/27/18 1126: Anion Gap 13, Estimated GFR > 60, BUN/Creatinine Ratio 17.1, Glucose 116 H, Calcium 9.5, Magnesium 1.9, Total Bilirubin 0.7, AST 38, ALT 55, Alkaline Phosphatase 60, Troponin I < 0.01, Eeb-M-Ndkjnscrjtm Pept 203 H, Total Protein 6.3, Albumin 3.9, Globulin 2.4, Albumin/Globulin Ratio 1.6, CBC w Diff NO MAN DIFF REQ, RBC 4.53 L, MCV 89.8, MCH 31.2 H, MCHC 34.7, RDW 13.5, MPV 8.3, Gran % 63.2, Lymphocytes % 21.5, Monocytes % 9.6 H, Eosinophils % 4.8, Basophils % 0.9, Absolute Granulocytes 4.1, Absolute Lymphocytes 1.4, Absolute Monocytes 0.6 , Absolute Eosinophils 0.3, Absolute Basophils 0.1 Assessment/Plan Assessment/Plan Assessment: 1. Paroxysmal atrial fibrillation 2. Obstructive sleep apnea 3. Hypertension 4. Hypothyroidism 5. Hyperlipidemia Plan: * Continue labetalol * Start amlodipine 5 mg daily for blood pressure control * Would keep off diltiazem for now given sinus bradycardia. If the patient develops rapid atrial fibrillation while off diltiazem, then permanent pacemaker may need to be considered for tachybradycardia syndrome. * Follow up with Dr. Aguirre 1 week after discharge Continue telemetry? Yes
[2018-01-28] MEDS ORDERED: AMLODIPINE BESYL5 M1 PO (11:43)
--- NOTE | 2018-01-28 11:44 | Patient Discharge Instructions ---
Discharge Instructions General Discharge Information You were seen/treated for: Atrial fibrillation Bradycardia Hypertension Watch for these problems: If you experience palpitations, chest pain, dizziness, shortness of breath please proceed to nearest emergency room. 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 about this hospital visit Diet Continue normal diet: Yes Recommended Diet: Heart Healthy Activity Full Activity/No Limits: No Activity Self Limited: Yes Acute Coronary Syndrome Inclusion Criteria At DC or during hospital stay patient has or had the following: ACS DIAGNOSIS No Discharge Core Measures Meds if any: Prescribed or Continued at Discharge Meds if any: NOT Prescribed or Continued at Discharge Congestive Heart Failure Inclusion Criteria At DC or during hospital stay patient has or had the following: CHF DIAGNOSIS No Discharge Core Measures Meds if any: Prescribed or Continued at Discharge Meds if any: NOT Prescribed or Continued at Discharge Cerebrovascular accident Inclusion Criteria At DC or during hospital stay patient has or had the following: CVA/TIA Diagnosis No Discharge Core Measures Meds if any: Prescribed or Continued at Discharge Meds if any: NOT Prescribed or Continued at Discharge Venous thromboembolism Inclusion Criteria VTE Diagnosis No VTE Type NONE VTE Confirmed by (Test) NONE Discharge Core Measures - Per Current guidelines, there needs to be overlap - treatment for the first 5 days of Warfarin therapy. - If discharged on Warfarin prior to 5 days of - overlap therapy, the patient will need to be - assessed for post discharge needs including - *Post discharge parental anticoagulation - *Warfarin and/or parental anticoagulation education - *Follow up date to check INR post discharge At least 5 days overlap therapy as Inpatient No Meds if any: Prescribed or Continued at Discharge Note: Overlap Therapy is Warfarin and Anticoagulant Meds if any: NOT Prescribed or Continued at Discharge
--- NOTE | 2018-01-28 12:47 | PN- Att Addend ---
Attending Addendum Attending Brief Note Patient seen and examined, feels ok. BMP still high this am. He does c/o feeling somewhat dizzy at times. Trops x3 neg. Vital Signs Date Time Temp Pulse Resp B/P B/P Pulse O2 O2 Flow FiO2 Mean Ox Delivery Rate 01/28 0747 59 162/100 01/28 0747 59 162/100 01/28 0637 62 182/98 01/28 0630 98.2 60 20 182/112 94 01/27 2100 97.6 62 20 162/98 92 01/27 1933 53 18 178/83 94 Room Air 01/27 1800 50 18 168/80 96 Room Air 01/27 1756 98.0 54 18 160/72 01/27 1749 54 18 160/72 99 Room Air 01/27 1550 187/87 01/27 1429 49 18 190/86 96 Room Air 01/27 1256 Room Air 01/27 1256 47 18 178/86 95 Room Air on exam: aox3, nad. cv; s1,s2, rrr, bradycardic. resp; clear abd; soft, nt, bs+ ext; + chronic venous stasis changes. Laboratory Tests 01/28 01/27 01/27 0645 2310 1425 Chemistry Sodium (137 - 145 mmol/L) 143 Potassium (3.5 - 5.1 mmol/L) 3.5 Chloride (98 - 107 mmol/L) 105 Carbon Dioxide (22 - 30 mmol/L) 27 Anion Gap (5 - 16) 11 BUN (9 - 20 mg/dL) 13 Creatinine (0.7 - 1.2 mg/dL) 0.7 Estimated GFR (>60 ml/min) > 60 BUN/Creatinine Ratio (7 - 25 %) 18.6 Troponin I (<0.11 ng/ml) < 0.01 < 0.01 Hematology CBC w Diff NO MAN DIFF REQ WBC (4.8 - 10.8 /CUMM) 6.3 RBC (4.70 - 6.10 /CUMM) 4.60 L Hgb (14.0 - 18.0 G/DL) 14.3 Hct (42 - 52 %) 42.0 MCV (80.0 - 94.0 FL) 91.2 MCH (27.0 - 31.0 PG) 31.0 MCHC (33.0 - 37.0 G/DL) 34.0 RDW (11.5 - 14.5 %) 13.6 Plt Count (130 - 400 /CUMM) 199 MPV (7.4 - 10.4 FL) 8.8 Gran % (42.2 - 75.2 %) 67.5 Lymphocytes % (20.5 - 51.1 %) 18.7 L Monocytes % (1.7 - 9.3 %) 8.6 Eosinophils % (0 - 5 %) 4.6 Basophils % (0.0 - 2.0 %) 0.6 Absolute Granulocytes (1.4 - 6.5 /CUMM) 4.3 Absolute Lymphocytes (1.2 - 3.4 /CUMM) 1.2 Absolute Monocytes (0.10 - 0.60 /CUMM) 0.5 Absolute Eosinophils (0.0 - 0.7 /CUMM) 0.3 Absolute Basophils (0.0 - 0.2 /CUMM) 0 A/P: 77 y/o M with pmh sig for atrial fibrillation, for which he takes aspirin, CAD, non-insulin dependent diabetes, hypothyroid, JAYLENE and HTN is placed on tele obs with chest pain and found to have sinus bradycardia as well as uncontrolled hypertension. As noted, patient has been kept on labetalol but Cardizem was discontinued. Cardiology recommends to start the patient on Norvasc. Please start amlodipine 5 mg today. Monitor the blood pressure. Patient was feeling slightly dizzy at times today. Will monitor his heart rate and blood pressure on the current regimen. Please check thyroid function tests. If heart rate and blood pressure remained stable the patient can likely be discharged home tomorrow with further follow-up with cardiology as an outpatient. His troponins have remained negative. D/W patient's family at bedside.
[2018-01-28 13:32] VITALS: BP 160/102
[2018-01-28 18:15] VITALS: BP 160/98
--- NOTE | 2018-01-28 20:15 | ECHOCARDIOGRAM REPORT ---
JOANN NICHOLAS Age: 77 : 1940 Gender: M Exam Date: 01/28/2018 10:12 Exam Location: [address] Ht (in): 70 Wt (lb): 262 BSA: 2.47 BP: 162 / 100 Ordering Physician: Jason Huntley MD Referring Physician: Jason Huntley MD Technologist: Ethan Hernandez [facility] Room Number: 178-1 Indications: Chest pain, unspecified Rhythm: Sinus Technical Quality: Technically difficult study FINDINGS Left Ventricle Normal size left ventricle. Mild concentric left ventricular hypertrophy. Normal left ventricular ejection fraction visually estimated at >60%. Abnormal relaxation filling pattern of the left ventricle for age (stage 1 diastolic dysfunction). Right Ventricle Normal right ventricular size and function. Right Atrium Normal right atrial size. Left Atrium Normal left atrial size. Mitral Valve Mild mitral annular calcification. Trace mitral regurgitation. Aortic Valve Diffuse thickening (sclerosis) of the aortic valve cusps without reduced excursion. No aortic stenosis. No aortic regurgitation. Tricuspid Valve Tricuspid valve not well visualized, grossly normal. Trace tricuspid regurgitation. Pulmonic Valve Pulmonic valve not well visualized, grossly normal. Pericardium No pericardial effusion. Great Vessels Normal size aortic root. CONCLUSIONS Normal size left ventricle. Normal left ventricular ejection fraction visually estimated at > 60%. Abnormal relaxation filling pattern of the left ventricle for age (stage 1 diastolic dysfunction). Trace mitral regurgitation. Trace tricuspid regurgitation. Shayne Brambila M.D. (Electronically Signed) Final Date: 28 January 2018 20:14 MEASUREMENTS (Male / Female) Normal Values 2D ECHO LV Diastolic Diameter PLAX 5.5 cm 4.2 - 5.9 / 3.9 - 5.3 cm LV Systolic Diameter PLAX 3.7 cm 2.1 - 4.0 cm LV Fractional Shortening PLAX 32.7 % 25 - 46 % LV Ejection Fraction 2D Teich 60.6 % IVS Diastolic Thickness 1.5 cm LVPW Diastolic Thickness 1.5 cm LV Relative Wall Thickness 0.5 RV Internal Dim ED PLAX 2.9 cm 1.9 - 3.8 cm LVOT Diameter 2.0 cm Aortic Root Diameter 3.7 cm LA Systolic Diameter LX 4.0 cm 3.0 - 4.0 / 2.7 - 3.8 cm LA Volume 46.0 cm 18 - 58 / 22 - 52 cm Ascending Aorta Diameter 3.9 cm DOPPLER AV Peak Velocity 130.0 cm/s AV Peak Gradient 6.8 mmHg AV Mean Velocity 86.8 cm/s AV Mean Gradient 3.0 mmHg AV Velocity Time Integral 35.3 cm LVOT Peak Velocity 90.2 cm/s LVOT Peak Gradient 3.3 mmHg LVOT Mean Velocity 57.1 cm/s LVOT Mean Gradient 2.0 mmHg LVOT Velocity Time Integral 30.1 cm LVOT Stroke Volume 94.6 cm AV Area Cont Eq vti 2.7 cm AV Area Cont Eq pk 2.2 cm MV Peak Velocity 117.0 cm/s MV Peak Gradient 5.5 mmHg MV Mean Velocity 51.4 cm/s MV Mean Gradient 1.0 mmHg Mitral E Point Velocity 53.3 cm/s Mitral A Point Velocity 105.5 cm/s Mitral E to A Ratio 0.5 MV PHT Velocity 66.5 cm/s MV Deceleration Grainger 146.0 cm/s MV Pressure Half Time 136.6 ms MV Area PHT 1.6 cm MV Deceleration Time 500.0 ms PV Peak Velocity 110.0 cm/s PV Peak Gradient 4.8 mmHg PV Mean Velocity 68.8 cm/s PV Mean Gradient 2.0 mmHg PV Velocity Time Integral 17.8 cm
[2018-01-28 22:40] VITALS: BP 172/98
[2018-01-29 06:28] VITALS: BP 140/84
--- NOTE | 2018-01-29 06:34 | PN-Observation ---
Jason Huntley 01/29/18 0633: Observation Note Observation Note _ I have personally examined JOANN NICHOLAS Zhao TURNER. him disposition is uncertain at this time. Before a determination can be made, he requires continued observation for the following reasons [Recent chest pain and hypertensive urgency]. Assessment/Plan Medical Assessment: 77-year-old male history of atrial fibrillation, hypertension, CAD, NIDDM presented to ED with chest pain radiating to the neck after experiencing longer than usual palpitations in the morning. The pain spontaneously resolved before the patient presented to the emergency department. And overnight on the monitor , he was in sinus bradycardia with first-degree heart block with lowest rates from 41 42 bpm. Serial troponins and EKGs were negative. Patient has remained hypertensive, and we are working to get him on the correct dose of amlodipine to control his blood pressure. Problem List: 1. Atrial fibrillation 2. Bradycardia 3. Hypertension 4. Hypertensive urgency Plan: * Amlodipine 10 mg p.o. * Blood pressure rechecked manually, found to be 135/85. Patient should be prepared for discharge * Continue labetalol * Continue home dose of colchicine for gout * Continue baby aspirin * Insulin sliding scale coverage * Continue home levothyroxine Subjective Follow-up For: Hypertensive urgency Chest pain Bradycardia Tele-Events Since Last Visit: Normal sinus rhythm and sinus bradycardia overnight, rates from 51bpm at the lowest Subjective: Patient seen seated comfortably at the bedside. He denies any chest pain, palpitations, shortness of breath, dizziness. Overnight, his blood pressure remained high, but this morning it was better and the patient is eager to go home. He currently has no complaints. Review of Systems Constitutional: Denies: chills, fever, weakness. Cardiovascular: Denies: chest pain, orthopena, palpitations. Respiratory: Denies: cough, short of breath, sputum production. Gastrointestinal: Denies: abdominal pain, diarrhea, nausea, vomiting. Objective Last 24 Hrs of Vital Signs/I&O Vital Signs Date Time Temp Pulse Resp B/P B/P Pulse O2 O2 Flow FiO2 Mean Ox Delivery Rate 01/29 0628 97.7 54 18 140/84 93 Room Air 01/28 2240 97.7 78 18 172/98 94 Room Air 01/28 2047 76 172/98 01/28 1815 73 160/98 01/28 1647 85 170/100 01/28 1452 68 170/94 07/26 1332 97.9 62 20 160/102 93 Room Air 01/28 1259 64 172/100 01/28 0747 59 162/100 01/28 0747 59 162/100 Intake & Output 01/29 0800 01/29 0000 01/28 1600 Intake Total 700 Output Total Balance 700 Intake, Oral 700 Number 1 Bowel Movements Patient 116.148 kg Weight Weight Bed scale Measurement Method Physical Exam General Appearance: Alert, Oriented X3, Cooperative, No Acute Distress HEENT: Atraumatic, PERRLA, EOMI, Mucous Membr. moist/pink Neck: Supple, No JVD, No thryomegaly, +2 Carotid Pulse wo Bruit Cardiovascular: Regular Rate, Normal S1, Normal S2, No Murmurs Lungs: Clear to Auscultation, Normal Air Movement Abdomen: Normal Bowel Sounds, Soft, No Tenderness Neurological: Normal Gait, Normal Speech, Strength at 5/5 X4 Ext Extremities: No Clubbing, No Cyanosis, No Edema Ninoska Krueger MD 01/29/18 1151: Observation Note Observation Note _ I have personally examined JOANN NICHOLAS JR. him disposition is uncertain at this time. Before a determination can be made, he requires continued observation for the following reasons. Patient seen and examined, overall doing better. Blood pressure has improved. Heart rate remained stable. Patient denies any dizziness. 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 Patient medically stable for discharge home today. His Cardizem has been discontinued and he was started on amlodipine. 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 He was kept on his labetalol.
[2018-01-29 07:39] VITALS: BP 168/90
[2018-01-29 08:18] LABS: ABSOLUTE BASOPHIL COUNT 0.1 /CUMM (0.0-0.2); ABSOLUTE EOSINOPHIL COUNT 0.3 /CUMM (0.0-0.7); ABSOLUTE GRANULOCYTE CT 4.2 /CUMM (1.4-6.5); ABSOLUTE LYMPH COUNT 1.3 /CUMM (1.2-3.4); ABSOLUTE MONOCYTE COUNT 0.6 /CUMM (0.10-0.60); BASOPHIL % 0.9 % (0.0-2.0); EOSINOPHIL % 5.3 % (0-5); GRANULOCYTE % 64.4 % (42.2-75.2); HEMATOCRIT 44.6 % (42-52); MEAN CORPUSCULAR HGB 30.7 PG (27.0-31.0); MEAN CORPUSCULAR HGB CONC 33.5 G/DL (33.0-37.0); MEAN CORPUSCULAR VOLUME 91.5 FL (80.0-94.0); MEAN PLATELET VOLUME 9.1 FL (7.4-10.4); PLATELET COUNT 205 /CUMM (130-400); RBC DISTRIBUTION WIDTH 13.6 % (11.5-14.5); RED BLOOD CELL CT 4.88 /CUMM (4.70-6.10); WHITE BLOOD CELL COUNT 6.5 /CUMM (4.8-10.8)
[2018-01-29] MEDS ORDERED: NORVASC10 M1 PO ×2 (09:07→10:16)
[2018-01-29] MEDS ORDERED: ASPIRIN81 M4 PO (09:18)
--- NOTE | 2018-01-29 19:21 | PN- Cardiology ---
Subjective Subjective: Feeling better. No chest discomfort or palpitations. He remains in sinus rhythm. Bradycardia has improved with discontinuation of diltiazem. No palpitations. No lightheadedness or dizziness. No nausea or vomiting. Objective Vital Signs and I&Os Intake & Output 01/30 1600 01/30 0801/30 0000 01/29 1600 01/29 0801/29 0000 Intake Total 220 Output Total Balance 220 Intake, Oral 220 Patient 256 lb Weight Weight Bed scale Measurement Method Physical Exam: Gen: The patient is in no acute distress HEENT: Normal nose, ears, and oropharynx. Pupils equal bilaterally. Conjunctiva normal. Neck: Supple with no JVD, no masses, and no thyromegaly Lungs: Clear to auscultation with normal respiratory effort Heart: RRR, S1, S2, 2/6 systolic murmur. No peripheral edema, 2+ pulses in the lower extremities bilaterally Abdomen: Soft, nontender, no masses. No hepatomegaly. No splenomegaly Extremities: No clubbing or cyanosis. Normal muscle strength in the upper and lower extremities Skin: Normal skin turgor with no skin ulcers or lesions noted. Neuro: Cranial nerves intact. Sensation intact Psych: Alert and oriented x 3 with appropriate affect Current Medications: Current Medications Sig/Ruma Start time Last Medication Dose Route Stop Time Status Admin Acetaminophen 650 MG Q4P PRN 01/27 164 DCD PO Acetaminophen 1,000 MG Q6P PRN 01/27 164 DCD N/A 1 UNIT IV Amlodipine Besylate 10 MG DAILY 01/29 0900 DCD 01/29 PO 0739 Aspirin 81 MG DAILY 01/28 1600 DCD 01/29 PO 0736 Colchicine 600 MCG BID 01/28 2100 DCD 01/29 PO 0736 Finasteride 5 MG DAILY 01/28 0900 DCD 01/29 PO 0737 Gabapentin 300 MG TID 01/27 2100 DCD 01/29 PO 0736 Heparin Sodium 5,000 UNIT Q8 01/27 2200 DCD 01/29 (Porcine) SC 0520 Insulin Aspart 0 TIDAC 01/27 1700 DCD SC Labetalol HCl 300 MG BID 01/28 0900 DCD 01/29 PO 0738 Levothyroxine Sodium 0.112 MG DAILY AC 01/28 0700 DCD 01/29 PO 0520 Lisinopril 40 MG DAILY 01/27 1633 DCD 01/29 PO 0737 Morphine Sulfate 2 MG Q6P PRN 01/27 1645 DCD IV Oxybutynin Chloride 10 MG BID 01/27 2100 DCD 01/29 PO 0736 Patient Medication 1 ED ONE 01/29 0000 [place] Teaching ED 01/29 2359 Tamsulosin HCl 0.4 MG DAILY 01/28 0900 DCD 01/29 PO 0736 Results Last 48 Hrs of Labs/Mics: Laboratory Tests 01/29/18 0625: Anion Gap 13, Estimated GFR > 60, BUN/Creatinine Ratio 17.1, Magnesium 1.9, TSH &T3 &Free T4 Intrp 2.620, CBC w Diff NO MAN DIFF REQ, RBC 4.88, MCV 91.5, MCH 30.7, MCHC 33.5, RDW 13.6, MPV 9.1, Gran % 64.4, Lymphocytes % 20.1 L, Monocytes % 9.3, Eosinophils % 5.3 H, Basophils % 0.9, Absolute Granulocytes 4.2, Absolute Lymphocytes 1.3, Absolute Monocytes 0.6, Absolute Eosinophils 0.3, Absolute Basophils 0.1 Assessment/Plan Assessment/Plan Assessment: 1. Paroxysmal atrial fibrillation 2. Obstructive sleep apnea 3. Hypertension 4. Hypothyroidism 5. Hyperlipidemia Plan: * Continue current medications. * Plan for discharge * follow up with Dr. Aguirre in 1 week. Continue telemetry? No
== END 2018-01-29 12:10 ==
LOC: ERH 11:04 → 1NO 13:47 → ERHI 13:47 → 1NO 13:47 → ENRESERV 18:09 → ENTRNSPT 19:40 → EDTRNSPT 19:52 → EDTRNSPTSTS 19:52 → CMPTRNSPT 20:00 → ENTRNSPT 20:16 → EDTRNSPTSTS 20:17 → EDTRNSPT 20:17 → 1NO 20:35 → CMPTRNSPT 20:43 → ENPENDDIS 01-29 09:48 → 1NO 01-29 12:10
PROVIDERS: Physician Assistant; Student in an Organized Health Care Education/Training Program
DX: R07.9 Chest pain, unspecified (principal); I48.0 Paroxysmal atrial fibrillation; Z79.01 Long term (current) use of anticoagulants; Z79.82 Long term (current) use of aspirin; G47.33 Obstructive sleep apnea (adult) (pediatric); E11.9 Type 2 diabetes mellitus without complications; E03.9 Hypothyroidism, unspecified; E78.5 Hyperlipidemia, unspecified; I10 Essential (primary) hypertension; M10.9 Gout, unspecified; N40.0 Benign prostatic hyperplasia without lower urinary tract symptoms; Z79.899 Other long term (current) drug therapy; I25.10 Atherosclerotic heart disease of native coronary artery without angina pectoris
CPT/HCPCS: 36592; 71046; 82436; 93005; 93010; 93306; 96372; G0378; J0131; J1644; J3490